=== PATIENT | male | born 1965 | race Caucasian/White ===

== ENCOUNTER 2016-12-17 11:38 | Day surgery (SDC) | payer OTHER ==
[2016-12-17] MEDS ORDERED: NS 1,000 ML IV ONE (11:54)
[2016-12-17] MEDS ORDERED: BACITRACIN IRRIGATION/NS 50,000 UNITS/1,000 ML BTL IRR ONE (11:54)
[2016-12-17] MEDS ORDERED: DIAZEPAM 5 MG TAB PO ONE (11:54)
[2016-12-17] MEDS ORDERED: diphenhydrAMINE 25 MG CAP PO ONE (11:54)
[2016-12-17] MEDS ORDERED: ceFAZolin 2 GM/DEXTROSE 100 ML IV ONE (11:54)
--- NOTE | 2016-12-17 12:15 | CPEKG ---
Heart Rate: 60 RR Interval: 1000 P-R Interval: 220 QRSD Interval: 102 QT Interval: 424 QTC Interval: 424 QRS [place]: 80 T Wave [place]: 40 EKG Severity - ABNORMAL ECG - EKG Impression: ATRIAL-PACED RHYTHM EKG Impression: LOW VOLTAGE IN FRONTAL LEADS Electronically Signed By: Agustin Jorgensen 17-Dec-2016 16:24:49
[2016-12-17] MEDS ORDERED: VANCOMYCIN HCL/NORMAL SALINE 250 ML IV ONE (12:30)
[2016-12-17] MEDS ORDERED: LIDOCAINE 1% 30 ML SDV ONE (12:45)
[2016-12-17] MEDS ORDERED: BUPIVACAINE 0.5% 30 ML SDV ONE (12:45)
[2016-12-17] MEDS ORDERED: LIDO/EPI 1% **for epidural** 30 ML SDV ONE (12:45)
[2016-12-17 12:50] LABS: % IMMATURE GRANULYOCYTES 0.3 % (0.0-1.1); ABSOLUTE IMMATURE GRANULOCYTES 0.02 10^3/uL (0.00-0.10); ADD DIFF? NO; ADD MORPH? NO; ADD SCAN? NO; ATYPICAL LYMPHOCYTE FLAG 0 (0-99); FRAGMENT RBC FLAG 0 (0-99); HEMATOCRIT 46.9 % (40.0-51.0); HEMOGLOBIN 15.9 g/dL (13.7-17.5); LEFT SHIFT FLG 0 (0-99); LIPEMIA HEMOLYSIS FLAG 90 (0-99); MEAN CELL HEMOGLOBIN 30.3 pg (27.9-34.1); MEAN CELL HEMOGLOBIN CONCENTR. 33.9 g/dL (32.4-36.7); MEAN CELL VOLUME 89.3 fL (81.5-99.8); MEAN PLATELET VOLUME 9.7 fL (8.7-11.7); PLATELET CLUMPS FLAG 70 (0-99); PLATELET COUNT 244 10^3/uL (150-400); RED BLOOD CELL COUNT 5.25 10^6/uL (4.40-6.38); RED CELL DISTRIBUTION WIDTH 11.6 % (11.5-15.2)
[2016-12-17 12:58] LABS: INR 1.01 (0.83-1.16); PROTIME(PATIENT) 13.2 SEC (12.0-15.0)
[2016-12-17] MEDS ORDERED: MIDAZOLAM 2 MG/2 ML VIAL ONE ×4 (13:01→13:56)
[2016-12-17 13:09] LABS: ANION GAP 13 mEq/L (8-16); CALCIUM 9.8 mg/dL (8.5-10.4); CARBON DIOXIDE 24 mEq/l (22-31); CHLORIDE 107 mEq/L (97-110); CREATININE 0.9 mg/dL (0.7-1.3); GLOMERULAR FILTRATION RATE > 60; GLUCOSE 89 mg/dL (70-100); POTASSIUM 4.4 mEq/L (3.5-5.2); SODIUM 144 mEq/L (134-144)
[2016-12-17] MEDS ORDERED: fentaNYL 100 MCG/2 ML INJ ONE ×2 (13:12→13:41)
--- NOTE | 2016-12-19 16:44 | EPPROC ---
Electrophysiology Procedure Note: PROCEDURE PERFORMED: * ICD generator change INDICATION: ICD generator at [facility]ON[facility] PROCEDURE NOTE: Patient presented to the cardiac catheterization laboratory in a fasting, postabsorptive state. Moderate sedation administered. The left infraclavicular area was prepped and draped in the usual sterile fashion. Lidocaine plus bupivacaine was used for local anesthesia. Using a combination of blunt and sharp dissection and electrocautery, the dissection was carried down to the prepectoral fascia and the existing pacemaker pocket was opened. The ICD generator was disconnected from the leads and the lead thresholds and impedance were checked. ICD pocket was modified. Scar was also modified. ICD pocket was copiously irrigated with antibiotic solution. The pocket was again inspected for any bleeding. The leads were attached to the ICD securely. The ICD was inserted into the pocket and secured in place with a nonabsorbable suture. The ICD pocket was closed in 3 layers with absorbable monocryl sutures.. Appropriate dressing was applied. The patient left the cardiac catheterization laboratory in stable condition. Serial Numbers: * Device [facility] Catracho Fortify Assura SN [id number] * Atrial Lead [facility] Catracho Tendril [id number] SN [id number] * Ventricular Lead [facility] Catracho Riata 1581 SN [id number] Stimulation Thresholds & Impedance Measurements: * Atrial Lead 2.5mV, 0.7@0.5ms, 454Ohms * Ventricular Lead 13.9mV, 1.4@0.5ms, 349Ohms Dylan Pacing Parameters * Pacing mode AAI * Lower rate 50 * Upper tracking rate 130 * Upper sensor rate 130 Patient Problems: Problems Problem Status Onset Ventricular tachycardia Acute
== END 2016-12-17 16:30 | disposition home or self-care (01) ==
LOC: FCATH 11:38
PROVIDERS: ATTEND Internal Medicine Cardiovascular Disease
PROC: 0JPT0PZ Removal of Cardiac Rhythm Related Device from Trunk Subcutaneous Tissue and Fascia, Open Approach (ICD-10-PCS; principal; 2016-12-17)
PROC: 0JH608Z Insertion of Defibrillator Generator into Chest Subcutaneous Tissue and Fascia, Open Approach (ICD-10-PCS; principal; 2016-12-17)
DX: Z45.02 Encounter for adjustment and management of automatic implantable cardiac defibrillator (principal); I47.2 Ventricular tachycardia; K21.9 Gastro-esophageal reflux disease without esophagitis; F41.9 Anxiety disorder, unspecified; Z88.0 Allergy status to penicillin
CPT/HCPCS: C1721; J2250; J3010; J3370

== ENCOUNTER → 2019-01-21 | Outpatient (CLI) | payer OTHER | LOC: FIMAGING 14:16 ==

== ENCOUNTER 2019-02-03 06:33 | Observation (INO) | payer OTHER | END 2019-02-04 12:14 | disposition home or self-care (01) | LOC: FCATH 06:33 → F2W 09:47 ==